=== PATIENT | female | born 1995 | race Two or more races ===

== ENCOUNTER → 2022-03-19 | Emergency (ER) | payer BC ==
[~2022-03-19] VITALS: Ht 177.8 cm; Wt 87.5 kg
[~2022-03-19] MED LIST: LORA-259 PO; LORAZEPAM INJ 2 MG/ML VIAL IM ONE; LORAZEPAM INJ 2 MG/ML VIAL ONE
[2022-03-19 10:41] LABS: BASOPHILS # (AUTO) 0.1 K/uL (0.0-0.2); BASOPHILS % (AUTO) 1.4 % (0.0-2.0); HEMATOCRIT 44 % (33-45); HEMOGLOBIN 15.2 g/dL (11.5-14.8); LYMPHOCYTES # (AUTO) 1.4 K/uL (0.8-4.8); LYMPHOCYTES % (AUTO) 29.3 % (20.0-44.0); MEAN CORPUSCULAR HGB CONC 34 g/dl (31.0-36.0); MEAN CORPUSCULAR VOLUME 91 fL (82-100); MONOCYTES # (AUTO) 0.4 K/uL (0.1-1.30); MONOCYTES % (AUTO) 8.4 % (2.0-12.0); NEUTROPHILS # (AUTO) 2.8 K/uL (1.8-8.9); NEUTROPHILS % (AUTO) 57.9 % (43.0-81.0); PLATELET COUNT (AUTO) 244 K/uL (150-450); RED BLOOD CELL COUNT(AUTO) 4.82 MIL/uL (4.0-5.2); WHITE BLOOD COUNT (AUTO) 4.8 K/uL (4.3-11.0)
[2022-03-19 10:47] LABS: CALCIUM, SERUM 8.9 mg/dL (8.5-10.1); CARBON DIOXIDE 32 mmol/L (21-32); CHLORIDE 103 mmol/L (98-107); CREATININE 0.9 mg/dL (0.6-1.3); GLUCOSE 91 mg/dL (74-106); POTASSIUM 3.9 mmol/L (3.5-5.1); SODIUM SERUM 140 mmol/L (136-145); UREA NITROGEN, BLOOD 18 mg/dL (7-18)
[2022-03-19 10:53] LABS: ALANINE AMINOTRANSFERASE 45 U/L (12-78); ALBUMIN 3.9 g/dL (3.4-5.0); ALCOHOL, BLOOD < 3 mg/dL (0-0); ALKALINE PHOSPHATASE 78 U/L (46-116); ASPARTATE AMINOTRANSFERASE 57 U/L (15-37); BILIRUBIN,DIRECT 0.2 mg/dL (0.0-0.2); BILIRUBIN,TOTAL 1.1 mg/dL (0.2-1.0); TOTAL PROTEIN, SERUM 7.3 g/dL (6.4-8.2)
[2022-03-19 11:00] LABS: ACETAMINOPHEN < 10 ug/ml (10-30)
[2022-03-19 11:53] LABS: BILIRUBIN,URINE NEGATIVE (NEGATIVE); COLOR,URINE YELLOW (YELLOW); LEUKOCYTE ESTERASE ,URINE NEGATIVE (NEGATIVE); NITRITE, URINE NEGATIVE (NEGATIVE); PH,URINE 6.5 (5.0-8.0); PROTEIN,URINE NEGATIVE (NEGATIVE); UGLUCOSE NEGATIVE (NEGATIVE); UROBILINOGEN,URINE 0.2 EU/dL (0.2)
--- NOTE | 2022-03-19 12:49 | NUR ---
SS Note: Pt. Is a 26-year-old female who demonstrates adequate insight to the reason for hospitalization. Per pt., she was brought in by , Harley, due to suicidal ideation. Pt. was oriented x4, alert, and cooperative. During interview, pt. was capable of following directions and appeared groomed. Pt.'s speech was at a normal rate and pt.'s mood was anxious. Pt. reported no hx of mental health, substance abuse, denies homicidal ideation. Pt. denies auditory hallucinations, visual hallucinations, paranoia, or delusions. SW explored pt.'s living situation. Per pt., she lives with her [[address] [place] [id number]]. Pt. has suicidal ideation on and off for 5 years. Per pt., she is stressed out about her job and feels like it will not get any better if she changes her work environment. Pt. works at a pharmacy. Pt. stated that her stressed level has got worse throughout [employer]. She starts having suicidal thoughts when she is alone or heading into work. Pt. has a therapist [Brenda] that she has been seeing for 6 months [once a week], pt. finds it helpful. Pt. started seeing a psychiatrist for the first-time last month but only once [pt. does not remember name]. was at bedside and seems to be very supportive. Per pt., she feels less anxious when is around. Crisis Member, Malathi, came to evaluate pt. and she does not meet criteria for a 5150 hold. Plan: GLEN provided available resources and pt. accepted. GLEN provided pt. with resources for [facility] [[facility] and [facility]]. GLEN will fax clinicals over to those two [facility] once pt. is medically cleared. [facility] [fax: [phone]] and [facility] [fax: [phone]]. GLEN spoke with Dawood from Intake at [place].
--- NOTE | 2022-03-19 13:24 | NUR ---
Patient discharged to home in stable condition. Written and verbal after care instructions given. Patient verbalizes understanding of instruction.
[2022-03-19 13:25] VITALS: BP 119/71
[2022-03-19 13:30] LABS: BACTERIA,URINE Moderate /HPF (None Seen); RBC,URINE 0-2 /HPF (0-2); SQUAMOUS EPITHELIAL CELL,UR Few /HPF (None Seen); WBC,URINE 0-2 /HPF (0-3)
== END | disposition home or self-care (01) ==
LOC: ER 10:14
DX: F32.A Depression, unspecified (principal); F41.9 Anxiety disorder, unspecified
CPT/HCPCS: 36415; 80048; 80076; 80143; 80307; 80320; 81001; 84703; 85025; 87086; 96372; 99283; J2060; G0480